=== PATIENT | male | born 1980 | race Caucasian/White ===

== ENCOUNTER 2018-10-03 09:17 | Emergency (ER) | payer MEDICAID, SELFPAY ==
[2018-10-03 09:26] VITALS: BP 131/71; PULSE 87; RESP 16; TEMP 36.7; O2SAT 98
--- NOTE | 2018-10-03 09:46 | W.ED.GENAD ---
Discharge Plan Disposition Patient Disposition: HOME Condition: Stable Discharge Details Chief Complaint: EarProblem Clinical Impression: Otitis externa of right ear Primary Care Provider: None,None ED Provider: Neel Correa Home Meds and New Rx's Prescriptions: New Cipro HC 0.2-1 % drops,suspension 3 drp OT BID Qty: 10 RF: 0 Discharge Instructions Instructions: Otitis Externa (ED) Additional Instructions: Please use antibiotic drops as prescribed and feel free to return to the emergency department for any new or significant worsening of symptoms or changing of your symptoms. Otherwise follow-up with your primary care provider for reassessment and further evaluation of your chronic medical problems. Referrals: [facility] [Provider Group] (Follow-up preferably next 2 to 4 weeks for assessment of your chronic conditions) Medical Decision Making Patient presenting to the emergency department for chief complaint of right earache. Patient states that this is been going on for the past week and is a dull ache. He does state that movement of his right ear does seem to exacerbate symptoms along with opening and closing his jaw. Patient denies any injury or trauma. He does state just prior to this he was swimming. He has been using peroxide to irrigate the ear and remove anything out of it but this is not been fully helping. Physical exam shows slight erythema to the right canal compared to the left, no object discharge, mild swelling of the canal. Exam is otherwise unremarkable. Given more external ear symptoms I feel that this is an otitis externa but I do have to admit that this is not a classic presentation on visual exam. Patient placed up on Cipro HC and return precautions were discussed. Patient does state that he is attempted to establish a primary care provider but will not be seen until November. He does state that he is attempting to get into them for some carpal tunnel syndrome and hepatitis C that he has chronically. Patient placed upon a follow-up list for preferable sooner appointment in the next 2 weeks for further evaluation of his chronic conditions. After discussion of diagnosis and plan of care patient has no further needs, questions, or concerns and states clear understanding to return to the emergency department for any worsening symptoms. HPI General Mode of arrival: ambulatory. Date/Time Provider Initiated Documentation: 10/03/18 09:34. Limitations to Documentation: no limitations. Information obtained by: patient and RN notes reviewed. History of Present Illness 38 year old M presents to the emergency department with the chief complaint of Right ear, described as mild, with intensity rated at 4. Quality is described as aching, and is localized to the right (ear ). Patient started experiencing this week(s) (1) and it has been constant. No relieving factors improve symptom(s), No exacerbating factors reported . Patient notes no other symptoms.. Patient did receive the following treatments prior to arrival, none Related Data Home Medications Medication Instructions Recorded Confirmed ciprofloxacin-hydrocortisone 3 drp OT BID #10 ml 10/03/18 [Cipro HC] Previous Rx's Medication Instructions Recorded ciprofloxacin-hydrocortisone 3 drp OT BID #10 ml 10/03/18 [Cipro HC] Allergies Allergy/AdvReac Type Severity Reaction Status Date / Time aspirin AdvReac Mild GI Upset Unverified 10/03/18 09:31 General Stated Complaint: EarProblem JULIUS: 4 Review of Systems Constitutional Denies chills, Denies fever(s) and Denies headache(s) ENT Denies dental pain, Reports otalgia, Denies facial pain, Denies headache(s), Denies nasal congestion and Denies sore throat Respiratory Denies cough Neurologic Denies headache(s) [facility] Social History Smoking/Tobacco Use Status: Current every day Tobacco Type: cigarettes Smoking cigarettes per day: 2 Alcohol Intake: never Drug use: Never Substance use type: does not use Do you feel safe at home: Yes Do you feel safe in your relationship?: Yes Exam Const General: cooperative, no acute distress and not ill appearing Orientation: alert, awake and oriented x3 HENMT Head: normal to inspection and normocephalic Ears: hearing grossly normal bilaterally, TM's normal bilaterally, mastoids normal, no periauricular adenopathy, EAC abnormal erythema on the right and EAC tenderness on the right and external ear abnormal auricular tenderness on the right and pain with movement of external ear on the right General nose exam: external nose normal Mouth: oral mucosae normal, lip normal, tongue normal and moist mucous membranes Teeth and gingiva: gingiva normal, normal teeth and gingiva and fair dentition Throat: posterior oropharynx normal, tonsils normal and uvula midline Neck Neck: normal visual inspection, full ROM, no lymphadenopathy, no meningeal signs, trachea midline, supple and no anterior neck swelling Resp Effort & Inspection: normal respiratory effort, able to speak in complete sentences and no respiratory distress Course Vital Signs Temperature 36.7 C 10/03/18 09:26 Pulse 87 10/03/18 09:26 Respiratory Rate 16 10/03/18 09:26 Blood Pressure 131/71 10/03/18 09:26 Pulse Oximetry 98 10/03/18 09:26 Temperature 36.7 C 10/03/18 09:26 Temperature Source Temporal Artery Scan 10/03/18 09:26 Pulse 87 10/03/18 09:26 Respiratory Rate 16 10/03/18 09:26 Respiratory Effort 10/03/18 09:26 Blood Pressure 131/71 10/03/18 09:26 Blood Pressure Position Sitting 10/03/18 09:26 Pulse Oximetry 98 10/03/18 09:26 Oxygen Delivery Method Room Air 10/03/18 09:26 Oxygen Flow Rate 0 10/03/18 09:26 Pain Level 3 10/03/18 09:44
--- NOTE | 2018-10-03 09:59 | ED.GENADUL_ITS ---
Discharge Plan Disposition Patient Disposition: HOME Condition: Stable Discharge Details Chief Complaint: EarProblem Clinical Impression: Otitis externa of right ear Primary Care Provider: None,None ED Provider: Neel Correa Home Meds and New Rx's Prescriptions: New Cipro HC 0.2-1 % drops,suspension 3 drp OT BID Qty: 10 RF: 0 Discharge Instructions Instructions: Otitis Externa (ED) Additional Instructions: Please use antibiotic drops as prescribed and feel free to return to the emergency department for any new or significant worsening of symptoms or changing of your symptoms. Otherwise follow-up with your primary care provider for reassessment and further evaluation of your chronic medical problems. Referrals: [facility] [Provider Group] (Follow-up preferably next 2 to 4 weeks for assessment of your chronic conditions) Medical Decision Making Patient presenting to the emergency department for chief complaint of right earache. Patient states that this is been going on for the past week and is a dull ache. He does state that movement of his right ear does seem to exacerbate symptoms along with opening and closing his jaw. Patient denies any injury or trauma. He does state just prior to this he was swimming. He has been using peroxide to irrigate the ear and remove anything out of it but this is not been fully helping. Physical exam shows slight erythema to the right canal compared to the left, no object discharge, mild swelling of the canal. Exam is otherwise unremarkable. Given more external ear symptoms I feel that this is an otitis externa but I do have to admit that this is not a classic presentation on visual exam. Patient placed up on Cipro HC and return precautions were discussed. Patient does state that he is attempted to establish a primary care provider but will not be seen until November. He does state that he is attempting to get into them for some carpal tunnel syndrome and hepatitis C that he has chronically. Patient placed upon a follow-up list for preferable sooner appointment in the next 2 weeks for further evaluation of his chronic conditions. After discussion of diagnosis and plan of care patient has no further needs, questions, or concerns and states clear understanding to return to the emergency department for any worsening symptoms. HPI General Mode of arrival: ambulatory . Date/Time Provider Initiated Documentation: 10/03/18 09:34 . Limitations to Documentation: no limitations . Information obtained by: patient and RN notes reviewed . History of Present Illness 38 year old M presents to the emergency department with the chief complaint of Right ear, described as mild, with intensity rated at 4. Qual ity is described as aching, and is localized to the right (ear ). Patient started experiencing this week(s) (1) and it has been constant. No relieving factors improve symptom(s), No exacerbating factors reported . Patient notes no other symptoms.. Patient did receive the following treatments prior to arrival, none Related Data Home Medications Medication Instructions Recorded Confirmed ciprofloxacin-hydrocortisone 3 drp OT BID #10 ml 10/03/18 [Cipro HC] Previous Rx's Medication Instructions Recorded ciprofloxacin-hydrocortisone 3 drp OT BID #10 ml 10/03/18 [Cipro HC] Allergies Allergy/AdvReac Type Severity Reaction Status Date / Time aspirin AdvReac Mild GI Upset Unverified 10/03/18 09:31 General Stated Complaint: EarProblem JLUIUS: 4 Review of Systems Constitutional Denies chills, Denies fever(s) and Denies headache(s) ENT Denies dental pain, Reports otalgia, Denies facial pain, Denies headache(s), Denies nasal congestion and Denies sore throat Respiratory Denies cough Neurologic Denies headache(s) [facility] Social History Smoking/Tobacco Use Status: Current every day Tobacco Type: cigarettes Smoking cigarettes per day: 2 Alcohol Intake: never Drug use: Never Substance use type: does not use Do you feel safe at home: Yes Do you feel safe in your relationship?: Yes Exam Const General: cooperative, no acute distress and not ill appearing Orientation: alert, awake and oriented x3 HENMT Head: normal to inspection and normocephalic Ears: hearing grossly normal bilaterally, TM's normal bilaterally, mastoids normal, no periauricular adenopathy, EAC abnormal erythema on the right and EAC tenderness on the right and external ear abnormal auricular tenderness on the right and pain with movement of external ear on the right General nose exam: external nose normal Mouth: oral mucosae normal, lip normal, tongue normal and moist mucous membranes Teeth and gingiva: gingiva normal, normal teeth and gingiva and fair dentition Throat: posterior oropharynx normal, tonsils normal and uvula midline Neck Neck: normal visual inspection, full ROM, no lymphadenopathy, no meningeal signs, trachea midline, supple and no anterior neck swelling Resp Effort & Inspection: normal respiratory effort, able to speak in complete sentences and no respiratory distress Course Vital Signs Temperature 36.7 C 10/03/18 09:26 Pulse 87 10/03/18 09:26 Respiratory Rate 16 10/03/18 09:26 Blood Pressure 131/71 10/03/18 09:26 Pulse Oximetry 98 10/03/18 09:26 Temperature 36.7 C 10/03/18 09:26 Temperature Source Temporal Artery Scan 10/03/18 09:26 Pulse 87 10/03/18 09:26 Respiratory Rate 16 10/03/18 09:26 Respiratory Effort 10/03/18 09:26 Blood Pressure 131/71 10/03/18 09:26 Blood Pressure Position Sitting 10/03/18 09:26 Pulse Oximetry 98 10/03/18 09:26 Oxygen Delivery Method Room Air 10/03/18 09:26 Oxygen Flow Rate 0 10/03/18 09:26 Pain Level 3 10/03/18 09:44
--- NOTE | 2018-10-10 19:07 | NUR.NOTE ---
Nursing Note: Referral was faxed today to [facility] for follow up. Toshia Gunter.
== END 2018-10-03 10:07 | disposition home or self-care (01) ==
PROVIDERS: Emergency Provider Nurse Practitioner Family
DX: H60.501 Unspecified acute noninfective otitis externa, right ear (principal)
CPT/HCPCS: 99283

== ENCOUNTER 2018-11-25 18:27 | Outpatient (REF) | payer MEDICAID, SELFPAY ==
[2018-11-28 11:14] LABS: Hepatitis C Ab w Rflx HCV PCR Reactive (NEGAT)
== END 2018-11-25 18:47 ==
LOC: NCHCN 18:27
PROVIDERS: PCP Nurse Practitioner Family; Visit Provider Nurse Practitioner Family
DX: B19.20 Unspecified viral hepatitis C without hepatic coma (principal)
CPT/HCPCS: 86803; 87522

== ENCOUNTER 2019-03-06 13:05 | Outpatient (CLI) | payer MEDICAID, SELFPAY ==
[2019-03-06 15:31] LABS: ALT 79 U/L (16-63); AST 37 U/L (15-37); Albumin 4.2 g/dL (3.4-5.0); Alkaline Phosphatase 69 U/L (46-116); Anion Gap 8.3 mmol/L (3-11); BUN 14 mg/dL (7-18); Bilirubin, Total 0.6 mg/dL (0.2-1.0); CO2 27.7 mmol/L (21.0-32.0); CREATININE 1.02 mg/dL (0.70-1.30); Calcium 9.4 mg/dL (8.5-10.1); Chloride 103 mmol/L (98-107); Glucose 83 mg/dL (74-106); Potassium 4.6 mmol/L (3.5-5.1); Sodium 139 mmol/L (136-145); Total Protein 7.8 g/dL (6.4-8.2)
[2019-03-06 15:34] LABS: HCT 44.1 % (40.0-50.0); HGB 14.8 g/dL (13.5-17.5); Mean Corp. HGB Concentration 33.6 g/dL (32.0-36.0); Mean Corpuscular Hemoglobin 30.4 pg (27.0-33.0); Mean Corpuscular Volume 90.6 fL (80-95); Mean Platelet Volume 10.4 fL (8.0-11.0); Platelet Count 227 x1000/uL (130-400); RBC 4.87 m/cumm (4.50-6.00); RBC Distribution Width 12.4 % (11.8-14.1); White Blood Cell Count 8.57 k/cumm (4.4-10.8)
[2019-03-07 11:46] LABS: HBs Antibody, Quant 7.8 mIU/mL (See Note); Hepatitis B Surface Ab Negative (See Note); Hepatitis B Surface Ag Negative (Negative)
[2019-03-07 12:03] LABS: HIV-1/2 Ag & Ab Screen Negative (Negative)
[2019-03-07 12:16] LABS: Hep B Core Antibody Negative (Negative)
[2019-03-07 12:30] LABS: Hep A Total Ab w Rflx IgM Positive (Negative)
[2019-03-08 11:14] LABS: Hep A Antibody IgM Negative (Negative)
[2019-03-08 17:10] LABS: HCV Genotype 3 (Undetected)
== END 2019-03-06 13:25 ==
PROVIDERS: PCP Nurse Practitioner Family; Visit Provider Family Medicine
DX: B19.20 Unspecified viral hepatitis C without hepatic coma (principal); Z11.4 Encounter for screening for human immunodeficiency virus [HIV]
CPT/HCPCS: 36415; 80053; 85027; 86704; 86706; 86709; 87340; 87389; 87521

== ENCOUNTER 2020-09-17 14:34 | Emergency (ER) | payer MEDICAID, SELFPAY ==
[2020-09-17] VITALS (45 sets, daily range): BP systolic 110–134; BP diastolic 57–94; PULSE 74–124; RESP 14–38; TEMP 37.5; O2SAT 87–98
--- NOTE | 2020-09-17 | DI.RAD_ITS ---
Exam(s) XR PORTABLE CHEST AP EXAM: XR PORTABLE CHEST AP CLINICAL HISTORY: attempted thorocentisis. TECHNIQUE: 2D digital imaging was performed. COMPARISON: CT CT CHEST PE CTA from 09/17/2020 CR XR PORTABLE CHEST AP from 09/17/2020 FINDINGS: Heart size is normal. The mediastinum is not widened. There is infiltrate in the lower left lung field. Also moderate-sized left pleural effusion. There is also atelectasis infiltrate in the opposite-right lung base. No obvious pleural effusion on the r ight side. No pneumothorax. IMPRESSION: Left lower lobe infiltrate. Moderate-sized left pleural effusion.Mild atelectasis-infiltrate evident in the right lung base. DATA REPOSITORY: RADIATION DOSE DELIVERED: All CT scans at this facility use at least one of these dose optimization techniques: automated exposure control; mA and/or kV adjustment per patient size (includes targeted e xams where dose is matched to clinical indication); or iterative reconstruction.
--- NOTE | 2020-09-17 14:30 | RT.EKG_ITS ---
APPROVED REPORT Exam: Resting ECG Reason for Exam: back pain Patient Location: E HR:120 bpm ECG Measurements Heart Rate 120 AXIS [place] 141 P 47 QRSd 83 QRS 30 QT 299 T 53 QTc 423 Conclusion Sinus tachycardia...rate> 99
--- NOTE | 2020-09-17 14:50 | W.ED.GENAD ---
Discharge Plan Disposition Patient Disposition: HOSPITAL, NON-SPECIFIC Condition: Stable Discharge Details Clinical Impression: Large pleural effusion, Bilateral pneumonia, Smoker Primary Care Provider: Aura Malik ED Provider: Mally Louis Home Meds and New Rx's Prescriptions: No Action acyclovir 800 mg tablet 800 mg PO TID Qty: 6 RF: 3 Discharge Data Discharge Date/Time-TO BE ENTERED AT DEPARTURE: 09/17/20 18:55 Medical Decision Making <Doug Gandhi MD - Last Filed: 09/28/20 03:34> 1600 -- 40-year-old male with history of remote IV drug use, smoker, here with 1 week of worsening left-sided chest discomfort, now constant and severe with associated shortness of breath. Patient is hypoxic and tachypneic in mild respiratory distress. Nonrebreather oxygen was applied and oxygen saturation improved from the mid 80s to mid 90s. Patient is tachycardic but normotensive. Consider pneumothorax. Stat portable chest x-ray was reviewed and interpreted by me: Left-sided effusion with lung collapse. CT of the chest was interpreted by radiology: Moderate left lung pleural effusion with lung collapse. No definite malignancy. Also small pocket of air noted posterior to the thyroid with no extension of the mediastinum. Labs reviewed and leukocytosis noted. Patient did cough up large brown sputum. I will send this for sputum culture. Plan to initiate treatment with ceftriaxone IV and Flagyl IV. Will send blood cultures and lactate. Screening ECG was reviewed and interpreted by me: Sinus tachycardia, 120 bpm, normal axis, nondiagnostic, please report. Surgery paged for consult. 3156 --other patient reassessed and continues to saturate in the low 90s on nasal cannula [address] Olguin who reviewed CT and will assess the patient for thoracentesis. Care signed out to Dr. Louis with plan to follow-up on recommendations from Dr. Olguin. Lab Data Lab results reviewed: Yes I reviewed the patient's lab results. <Mally Louis DO - Last Filed: 09/18/20 16:55> 1630 --please see Dr. Gandhi's note for initial presentation, exam and plan. Plan is for patient to have thoracentesis by Dr. Olguin at bedside. Patient complaining of some pain. We will give a dose of morphine prior to procedure. Plan is for admission. Discussed with Dr. Olguin and will admit to hospitalist. 1744 --Dr. Olguin stated she tried multiple times to drain the fluid but was unsuccessful - fluid rock hard and suspects an empyema. Recommend transfer to another facility for thoracic surgery for decortication. Called [facility] and [facility] [place] and no beds available. Discussed with [facility] and they have accepted patient for transfer. Accepting physician Dr. Dee. Plan discussed with patient and he is agreeable. Oxygen saturation mid 90s on 5L NC. He is complaining of return of pain. Will give another dose of morphine. Pt remained hemodynamically stable prior to transfer. Medical Records Medical records reviewed: Yes I reviewed the patient's medical records. HPI <Doug Gandhi MD - Last Filed: 09/28/20 03:34> General Mode of arrival: ambulatory. Date/Time Provider Initiated Documentation: 09/17/20 14:45. Limitations to Documentation: no limitations. Information obtained by: patient. HPI Narrative: 40-year-old presents with male chief complaint of left chest pain. Patient notes pain started about a week ago and has worsened significantly over the past couple days. Pain is now constant. Sharp. Severe. Pain is worse when he lies flat. Pain radiates to his mid back. Patient does note recent intermittent cough productive of brown sputum. No fever. Patient notes remote history of IV drug use but has not used in years. Related Data Home Medications Medication Instructions Recorded Confirmed acyclovir 800 mg tablet 800 mg PO TID #6 tab 01/02/19 01/02/19 Previous Rx's Medication Instructions Recorded acyclovir 800 mg tablet 800 mg PO TID #6 tab 01/02/19 Allergies Allergy/AdvReac Type Severity Reaction Status Date / Time avocado Allergy Verified 01/02/19 08:17 aspirin AdvReac Mild GI Upset Unverified 10/03/18 09:31 General Stated Complaint: Chest Pain JULIUS: 2 Review of Systems <Doug Gandhi MD - Last Filed: 09/28/20 03:34> All systems reviewed & are unremarkable except as noted in HPI and below Constitutional Constitutional: Denies fever(s) Cardiovascular Cardiovascular: Reports chest pain and Reports dyspnea Respiratory Respiratory: Reports dyspnea Gastrointestinal Gastrointestinal: Denies nausea and Denies vomiting PFSH <Doug Gandhi MD - Last Filed: 09/28/20 03:34> Social History Smoking/Tobacco Use Status: Current every day Tobacco Type: cigarettes Smoking risk assessment performed?: Yes Alcohol Intake: never Drug use: Never Substance use type: does not use Do you feel safe at home: Yes Do you feel safe in your relationship?: Yes Exam <Doug Gandhi MD - Last Filed: 09/28/20 03:34> Const General: cooperative and acute distress respiratory Nutritional Appearance: well nourished Orientation: alert and awake HENMT Head: normocephalic and atraumatic Mouth: moist mucous membranes Eyes Conjunctivae: normal conjunctivae Sclera: normal sclerae EOM: EOM intact bilaterally Neck Neck: trachea midline and supple Resp Auscultation: diminished lung sounds on the left in the lower lung wild, no rales, no rhonchi and no wheezes Cardio Jugular venous pressure: no JVD Rate: tachycardic Rhythm: regular rhythm GI Palpation: soft, not firm, no guarding, no masses, not rigid and nontender Skin General skin exam: no rashes or lesions noted Neuro General: patient alert, patient awake, patient oriented x3 and tone normal Extrem General: no calf tenderness and no edema Psych Appearance: grossly normal Mental Status: mental status grossly normal Affect: anxious affect Course <Doug Gandhi MD - Last Filed: 09/28/20 03:34> Vital Signs Vital signs: Vital Signs Temperature 37.5 C 09/17/20 14:39 Pulse 124 H 09/17/20 14:39 Blood Pressure 127/94 H 09/17/20 14:39 Pulse Oximetry 88 L 09/17/20 14:39 Temperature 37.5 C 09/17/20 14:39 Temperature Source Temporal Artery Scan 09/17/20 14:39 Pulse 124 H 09/17/20 14:39 Respiratory Effort Non-Labored 09/17/20 14:44 Blood Pressure 127/94 H 09/17/20 14:39 Blood Pressure Position Sitting 09/17/20 14:39 Pulse Oximetry 88 L 09/17/20 14:39 Oxygen Delivery Method Room Air 09/17/20 14:39 Oxygen Flow Rate 0 09/17/20 14:39 Pain Level 10 09/17/20 14:39 Critical Care Time <Doug Gandhi MD - Last Filed: 09/28/20 03:34> Critical Care Time Critical Care Time: Yes Total Critical Care Time: 40 Attestation: I spent greater than 40 minutes addressing this patient's immediate life threats. Please see MDM section of note. This time was spent engaged in work directly related to the patient's care, exclusive of separate procedures, and failure to initiate these interventions would have likely resulted in clinically significant or life threatening deterioration in the patient's condition. Sign Out <Doug Gandhi MD - Last Filed: 09/28/20 03:34> Sign Out Data: Sign Out Comment: discuss disposition with Dr. Olguin post thoracentesis. Will require admission. Last updated by Doug Gandhi MD at 09/17/20 16:27
--- NOTE | 2020-09-17 15:00 | DI.RAD_ITS ---
Exam(s) XR PORTABLE CHEST AP EXAM: XR PORTABLE CHEST AP CLINICAL HISTORY: chest pain left TECHNIQUE: 2D digital imaging was performed. COMPARISON: No exams were available for comparison FINDINGS: Examination is limited due to poor inspiration. Cardiac silhouette, the largely obscured, appears to be within normal limits. Pulmonary vasculature appears within normal limits. There is increased op acity in the left lung base. This may represent an infiltrate and/or effusion. There is a haziness in the right lung base. This may represent an infiltrate. No pneumothorax is seen. No acute osseou s abnormalities identified. IMPRESSION: 1. Suboptimal examination due to poor inspiration. 2. Bilateral basilar opacities, left greater than right. This may represent an infiltrate and/or eff usion particularly on the left. DATA REPOSITORY: RADIATION DOSE DELIVERED:
[2020-09-17 15:01] LABS: HCT 38.8 % (40.0-50.0); HGB 13.1 g/dL (13.5-17.5); MCH 27.9 pg (27.0-33.0); MCHC 33.8 % (32.0-36.0); MCV 82.7 fL (80-95); MPV 9.5 fL (8.0-11.0); Nucleated RBC 0 %; Platelet Count 328 10^3/uL (130-400); RBC 4.69 10^6/uL (4.36-5.78); RDW 12.4 % (11.8-14.1); RDW-SD 37.3 fL; WBC 21.97 10^3/uL (4.4-10.8)
[2020-09-17] MEDS: Normal Saline Flush 10 ML SYR IVP ×2 (15:03→16:55)
[2020-09-17] MEDS: HYDROmorphone 2 MG/ML VIAL 1 MG IVP (15:03)
[2020-09-17] MEDS: Normal Saline - Diluent 50 ML VIAL IV (15:15)
[2020-09-17] MEDS: Omnipaque 350 MG/ML 100 ML BTL IJ (15:16)
[2020-09-17 15:19] LABS: INR 1.1 (0.9-1.1); PTT Activated 34.3 sec (21.0-27.5); Prothrombin Time 11.5 sec (9.3-11.0)
[2020-09-17 15:20] LABS: ALT 30 U/L (16-63); AST 17 U/L (15-37); Absolute Eosinophil Count 0.22 10^3/uL (0.0-0.7); Absolute Lymphocyte Count 1.76 10^3/uL (1.2-3.4); Absolute Monocyte Count 2.64 10^3/uL (0.1-0.8); Absolute Neutrophil Count 16.92 10^3/uL (1.2-6.7); Albumin 3.1 g/dL (3.4-5.0); Alkaline Phosphatase 92 U/L (46-116); Anion Gap 7.9 mmol/L (3-11); BUN 19 mg/dL (7-18); Bilirubin, Total 0.8 mg/dL (0.2-1.0); CO2 28.1 mmol/L (21.0-32.0); CREATININE 1.1 mg/dL (0.70-1.30); Calcium 8.8 mg/dL (8.5-10.1); Chloride 98 mmol/L (98-107); Diff Comment Manual Differential; Glucose 126 mg/dL (74-106); Magnesium 1.7 mg/dL (1.8-2.4); Potassium 4.4 mmol/L (3.5-5.1); RBC Morphology Normal; Sodium 134 mmol/L (136-145); Total Protein 8.1 g/dL (6.4-8.2)
[2020-09-17 15:22] LABS: Troponin I < 0.05 ng/mL (<0.06)
--- NOTE | 2020-09-17 15:26 | DI.CT_ITS ---
Exam(s) CT CHEST PE CTA EXAM: CT CHEST PE CTA CLINICAL HISTORY: left chest pain 1 week, hypoxia, tachycardia. . TECHNIQUE: Imaging Protocol: Axial CT angiography was performed with multi-slice acquisition and mu lti-planar and/or 3D reconstructions. CONTRAST MATERIAL: Intravenous: Omnipaque 350 Contrast volume:100 mL COMPARISON: CR XR PORTABLE CHEST AP from 09/17/2020 CR XR PORTABLE CHEST AP from 09/17/2020 FINDINGS: Tracheobronchial tree: Patent where visualized. Pulmonary parenchyma: There is a moderately large left pleural effusion with marked consolidation of both the left upper and left lower lobes. Smaller areas of consolidation are seen in the right middl e and right lower lobes. No right pleural effusion is seen. No architectural distortion. Pulmonary Arteries: No evidence of filling defect to suggest pulmonary emboli. Mediastinum and Roxane: No dominant adenopathy or fluid collection. There is a 1 x 2 cm focal collectio n of air to the right of the trachea just posterior to the right lobe of the thyroid gland no definit e connection to either the adjacent trachea or esophagus is noted. No other subcutaneous air or medi astinal air is noted. Visualized thyroid gland: Unremarkable. Pleura: Please see above. No pneumothorax. Heart: The heart is not dilated. Mild coronary artery calcification. No pericardial effusion. Aorta: Thoracic aorta non-dilated. No evidence of dissection. Upper abdomen: Unremarkable. Soft tissues: Unremarkable. Bones: Normal. IMPRESSION: 1. No evidence of pulmonary embolism, thoracic aortic dissection or aneurysm. 2. Bilateral pulmonary infiltrates and a moderately large left pleural effusion. 3. 1 x 2 cm focal air collection to the right of the trachea and posterior to the thyroid gland of un certain if any clinical significance. No communication is seen with either the airway or the trachea and no other mediastinal or subcutaneous air is seen. This may be iatrogenic. Please correlate wit h the patient's history. 4. Results of this exam have been verbally communicated with provider. RADIATION DOSE DELIVERED: 501.36mGy.cm Total DLP DATA REPOSITORY: All CT scans at this facility are submitted to the National Radiology Data Registry (NRDR) Dose Index Registry (DIR) with the [employer] (A[employer]). RADIATION OPTIMIZATION: All CT scans at this facility use at least one of these dose optimization te chniques: automated exposure control; mA and/or kV adjustment per patient size (includes targeted exa ms where dose is matched to clinical indication); or iterative reconstruction.
[2020-09-17 15:53] LABS: Source Nasal/Nares
[2020-09-17] MEDS: cefTRIAXone 2 GM/50 ML BAG IVPB (16:21)
[2020-09-17 16:33] LABS: Lactate 0.7 mmol/L (0.6-1.4)
[2020-09-17 16:47] LABS: COVID-19 PCR Negative (Negative)
[2020-09-17] MEDS: metroNIDAZOLE 500 MG/100 ML BAG 100 MG IVPB (16:56)
--- NOTE | 2020-09-17 17:36 | W.PM.OP ---
Date of service: 09/17/20 Time of Service: 17:36 Operative Note Operative Note DATE OF PROCEDURE: 09/17/20 PRE-OP DIAGNOSIS: fleuid left chest POST-OP DIAGNOSIS: same PROCEDURE: thorocentisis SURGEON: Carol Olguin ANESTHESIA TYPE: Local By Surgeon Refer to Anesthesia Record ESTIMATED BLOOD LOSS: 1 PATHOLOGY: none sent COMPLICATIONS: None Patient was transported to: no change Procedure Description: Chest x-ray was reviewed prior to beginning the procedure. Informed consent was obtained explaining risks and benefits of the procedure, including but not limited to bleeding, infection, pneumothorax, recurrence, complications of anesthesia, and other unforetold complications. PROCEDURE: The patient is brought to the procedure room and placed in the seated position. Ultrasound is used to localize the pocket on the left chest. The area is marked and then prepped and draped in the usual sterile fashion using a ChloraPrep scrub solution. 10 cc's of 1% Lidocaine is used to anesthetize the T10 interspace. A 21-gauge finder needle is used to attempt to aspirate fluid from the lung. Again pockets of fluid are localized using ultrasound. No fluid could be aspirated. Multiple interspaces were tried. Up to T8. No fluid could be aspirated. Compression dressing is applied. I think he has a empyema. And will need to go for decortication. This was discussed with Dr. Louis. Patient tolerated procedure well without complication. Portable chest x-ray is pending . Sterile compression dressing is applied.
--- NOTE | 2020-09-17 19:35 | DI.VRAD_ITS ---
PROCEDURE INFORMATION: Exam: XR Chest Exam date and time: 09/17/2020 5:36 PM Age: 40 years old Clinical indication: Other: Chest pain, attempted thoracentesis TECHNIQUE: Imaging protocol: XR of the chest. Views: 1 view. COMPARISON: CR XR PORTABLE CHEST AP 09/17/2020 2:56 PM FINDINGS: Lungs: Left lower lobe consolidation consistent with infiltrate. Right lower lobe segmental airspace disease representing infiltrate or atelectasis. Pleural spaces: Small left pleural effusion. No pneumothorax. Heart/Mediastinum: Normal heart size. Bones/joints: Unremarkable. IMPRESSION: 1. Left lower lobe consolidation and small left pleural effusion. No pneumothorax. 2. Right lung base subsegmental consolidation suggesting atelectasis or infiltrate. Dictated and Authenticated by: Sterling Quiñones MD. Ordering:SCARLETT Medina MD
--- NOTE | 2020-09-18 21:56 | W.SURGCON ---
Date of service: 09/17/20 Time of Service: 20:00 Assessment and Plan Assessment and plan (1) Large pleural effusion: Status: Acute Assessment and plan: Left-sided pleural effusion risks versus benefits discussed with patient and he consents. Cultures and antibiotics initiated in the ED. If he review his CT personally with Dr. Schafer. (2) Bilateral pneumonia: Status: Acute (3) Smoker: Status: Acute History of Present Illness Narrative: Patient is a 40-year-old male seen at the request of Dr. Louis regarding a pleural effusion. Patient has been sick with productive cough and fever for the last week. His Covid status is negative. He is coughing up a greenish blackish productive sputum. With associated fever and chills. He is having pretty significant pleuritic pain. I did review his CT, his labs and his past medical history prior to initiating the procedure. Informed consent is obtained explaining risks and benefits of procedure including not limited to: bleeding, infection, complications from the anesthetic, damage to the lung pneumothorax, bronchopleural fistula, and other unforetold complications. Antibiotics have been initiated by ED staff. I did also review his CT with Dr. Schafer prior to the procedure. He also has a air collection lateral to the lower thyroid. Given his degree of coughing there may have been a bleb rupture or possibly even a transient bronchial disruption. There is no crepitus. There is no signs of ongoing air leak. His trachea is midline and has no signs of dyspnea or hemoptysis. He is stable from respiratory standpoint. He is coughing quite vigorously. Consults Requesting physician: Mally Louis Review of Systems All systems reviewed & are unremarkable except as noted in HPI and below PFSH Social History Smoking/Tobacco Use Status: Current every day Tobacco Type: cigarettes Smoking risk assessment performed?: Yes Alcohol Intake: never Drug use: Never Substance use type: does not use Do you feel safe at home: Yes Do you feel safe in your relationship?: Yes Exam Const General: No well groomed, in distress mild, anxious and disheveled Orientation: alert, awake and oriented x3 Limitations: behavioral limitations HENMT Other: extremely poor dentition. poor hygiene. no track neff no jaundice Neck Neck: trachea midline, supple, no lymphadenopathy noted and no tracheal deviation Other: no crepitus Chest Chest: normal inspection of the chest, normal palpation of entire chest wall, no crepitus and tenderness (all over pain b/l) Resp Effort & Inspection: normal respiratory effort, able to speak in complete sentences, cough and paradoxical thoraco-abdominal movements Auscultation: diminished lung sounds (Lbase) on the left Percussion: dullness Cardio Rate: regular rate Rhythm: regular rhythm GI Palpation: soft and nontender Extrem Other: Moving all extremities independently Results Last Vital Signs Temp 37.5 C 09/17/20 14:39 Pulse 74 09/17/20 18:46 Resp 23 09/17/20 18:01 BP 117/70 09/17/20 18:46 Pulse Ox 93 09/17/20 18:40 Labs Result diagrams: 09/17/20 14:48 09/17/20 14:48
--- NOTE | 2020-09-24 08:08 | ED.FU.B_ITS ---
results of sputum culture faxed to [facility] [place], [facility] where pt was transferred
--- NOTE | 2020-09-24 08:08 | W.ED.FU ---
results of sputum culture faxed to [facility] [place] where pt was transferred
== END 2020-09-17 18:55 | disposition short-term general hospital (02) ==
PROVIDERS: Student in an Organized Health Care Education/Training Program; Emergency Provider Physician Assistant; PCP Nurse Practitioner Family
DX: J18.9 Pneumonia, unspecified organism (principal); J91.8 Pleural effusion in other conditions classified elsewhere; F17.210 Nicotine dependence, cigarettes, uncomplicated
CPT/HCPCS: 36415; 71275; 80053; 86850; 86900; 86901; 87040; 87635; 93005; 96365; 96367; 96375; 96376; 99291; 71045; 83605; 83735; 84484; 85025; 85610; 85730; 87070; 87205; 93010; J3490